=== PATIENT | male | born 1945 | race Hispanic/Latino ===

== ENCOUNTER → 2019-09-19 | Outpatient (CLI) | payer OTHER | END | disposition home or self-care (01) | LOC: SHCH 15:09 | PROVIDERS: ATTEND Internal Medicine Cardiovascular Disease | DX: I35.8 Other nonrheumatic aortic valve disorders (principal); I35.0 Nonrheumatic aortic (valve) stenosis | CPT/HCPCS: 93306; 93356 ==

== ENCOUNTER → 2019-09-21 | Outpatient (CLI) | payer OTHER | END | disposition home or self-care (01) | LOC: SHCH 10:04 | PROVIDERS: ATTEND Internal Medicine Cardiovascular Disease | DX: I73.9 Peripheral vascular disease, unspecified (principal); I87.2 Venous insufficiency (chronic) (peripheral) | CPT/HCPCS: 93925; 93970 ==

== ENCOUNTER → 2020-03-27 | Outpatient (CLI) | payer OTHER | END | disposition home or self-care (01) | LOC: SHCH 09:39 | PROVIDERS: ATTEND Internal Medicine Cardiovascular Disease | DX: I35.0 Nonrheumatic aortic (valve) stenosis (principal) | CPT/HCPCS: 93306; 93356 ==

== ENCOUNTER → 2021-02-27 | Outpatient (CLI) | payer OTHER | END | disposition home or self-care (01) | LOC: SHCH 12:54 | PROVIDERS: ATTEND Internal Medicine Cardiovascular Disease | DX: I73.89 Other specified peripheral vascular diseases (principal); I87.2 Venous insufficiency (chronic) (peripheral); I70.293 Other atherosclerosis of native arteries of extremities, bilateral legs | CPT/HCPCS: 93925; 93970 ==

== ENCOUNTER → 2022-08-17 | Outpatient (CLI) | payer OTHER | END | disposition home or self-care (01) | LOC: SHCH 12:37 | PROVIDERS: ATTEND Internal Medicine Cardiovascular Disease | DX: I35.1 Nonrheumatic aortic (valve) insufficiency (principal); I11.9 Hypertensive heart disease without heart failure; I87.2 Venous insufficiency (chronic) (peripheral); I70.203 Unspecified atherosclerosis of native arteries of extremities, bilateral legs; E11.51 Type 2 diabetes mellitus with diabetic peripheral angiopathy without gangrene; E78.5 Hyperlipidemia, unspecified; Z95.3 Presence of xenogenic heart valve; Z95.1 Presence of aortocoronary bypass graft | CPT/HCPCS: 93306; 93925; 93970 ==

== ENCOUNTER → 2024-01-03 | Outpatient (CLI) | payer OTHER | END | disposition home or self-care (01) | LOC: SHCH 08:56 | PROVIDERS: ATTEND Internal Medicine Cardiovascular Disease | DX: I73.9 Peripheral vascular disease, unspecified (principal); I87.2 Venous insufficiency (chronic) (peripheral) | CPT/HCPCS: 93925; 93970 ==

== ENCOUNTER → 2024-08-13 | Outpatient (CLI) | payer OTHER ==
[2024-08-13 16:29] LABS: BASOPHILS # (AUTO) 0.03 K/uL (0.00-0.20); BASOPHILS % (AUTO) 0.3 % (0.0-5.0); EOSINOPHILS # (AUTO) 0.24 K/uL (0.00-0.70); EOSINOPHILS % (AUTO) 2.4 % (0.0-8.0); HEMATOCRIT 36.6 % (42-54); IMMATURE GRANULOCYTE ABSOLUTE 0.03 K/uL (0-1); LYMPHOCYTES # (AUTO) 1.4 K/uL (1.0-4.8); LYMPHOCYTES % (AUTO) 13.7 % (21.0-51.0); MEAN CORPUSCULAR HEMOGLOBIN 30.4 pg (27.0-33.0); MEAN CORPUSCULAR HGB CONC 32.5 g/dL (32.0-36.0); MEAN CORPUSCULAR VOLUME 93.4 fL (79-99); MONOCYTES # (AUTO) 0.9 K/uL (0.1-1.0); MONOCYTES % (AUTO) 9.1 % (3.0-13.0); NEUTROPHILS # (AUTO) 7.5 K/uL (1.8-7.7); NEUTROPHILS % (AUTO) 74.2 % (40.0-77.0); PLATELET COUNT (AUTO) 210 K/uL (130-400); RED BLOOD CELL COUNT(AUTO) 3.92 MIL/uL (4.50-6.20); RED CELL DISTRIBUTION WIDTH 14.6 % (11.0-15.5); WHITE BLOOD COUNT (AUTO) 10.1 K/uL (4.8-10.8)
[2024-08-13 16:50] LABS: ALBUMIN 3.7 g/dL (3.5-5.0); BILIRUBIN,TOTAL 0.6 mg/dL (0.2-1.0); CREATININE 1.4 mg/dL (0.5-1.3); POTASSIUM 4.8 mmol/L (3.5-5.1)
== END | disposition home or self-care (01) ==
LOC: LAB 15:31
PROVIDERS: ATTEND Internal Medicine Cardiovascular Disease
DX: R06.02 Shortness of breath (principal)
CPT/HCPCS: 36415; 80053; 83880; 85025

== ENCOUNTER → 2024-08-14 | Outpatient (CLI) | payer OTHER ==
--- NOTE | 2024-08-16 10:19 | HMCSR ---
APPROVED REPORT EXAM: Two-dimensional and M-mode echocardiogram with Doppler and color Doppler. INDICATION ICD: R06.02 Shortness of breath 2D Dimensions RVDd4.4 cmLVEF(%)43.8 (>50%)LVED Vol(simp.)233.0 mL IVSd1.3 (0.7-1.1cm)FS(%)22 %LVES Vol(simp.)135.0 mL LVDd5.0 (3.8-5.6cm)Ao Root(2D)3.0 (2.0-3.7cm)LVEF(%, simp.)42 % PWd1.4 (0.7-1.1cm)LVOT diam2.0 (1.8-2.4cm)LA ESV INDEX (BP)56.52 mL/m2 LVDs3.9 (2.5-4.0cm)IVC diam1.8 cm Aortic Valve AoV Vmax2.7 m/Haresh Peak GR30.2 mmHgLVOT Vmax1.2 m/s AoV VTI0.7 mAo Mean GR15.8 mmHgLVOT VTI0.31 m YECENIA (VMAX)1.4 cm2Al P1/2T180 msAVA (VTI) 1.4 cm2 Mitral Valve MV E Hqhv039.1 cm/sDECEL Zczi047 msMV Peak GR17 mmHg MR Max PG109 mmHgP 1/2 T63 msMV Mean GR6 mmHg MVA (PHT)3.5 cm2MVA (VTI)2.0 cm2 TDI E/E' Hzdbmj25.4E/E' Ocqxhqr10.3 Pulmonary Valve PV Vmax0.8 m/sPV VTI0.19 mPV Mean GR2 mmHg PV Peak GR2.7 mmHg Tricuspid Valve TR Vmax3.2 m/sRAP (EST) 8 awWjHKTU85.3 mmHg TR Peak GR41.3 mmHg Left Ventricle The left ventricle structure and function is normal. Mild global hypokinesis Apical hypokinesis mild- moderate There is mild to moderate concentric left ventricular hypertrophy. LVEF is 40-45%. Indetermi brenda diastolic dysfunction. Right Ventricle The right ventricle is mildly to moderately dilated. Right ventricular systolic function is mildly to moderately reduced. Atria The left atrium is severely dilated. The right atrium is moderately dilated. Aortic Valve Aortic valve is trileaflet. The aortic valve is calcified and displays decreased opening. Moderate ao rtic regurgitation. AV Dimensionless Index is 0.44 Calculated aortic valve area is 1.4 cm2 with maxim um pressure gradient of 30.2 mmHg and mean pressure gradient of 15.8 mmHg. Mitral Valve Mitral valve leaflets are calcified. Mitral annular calcification is moderate. Mitral regurgitation i s moderate. Calculated mitral valve area is 2.0 cm2 with maximum pressure gradient of 16.9 mmHg and m sebastián pressure gradient of 5.6 mmHg. Tricuspid Valve The tricuspid valve leaflets appear normal. There is mild tricuspid regurgitation. Right ventricular systolic pressure is estimated at 40-50 mmHg. Pulmonic Valve The pulmonic valve leaflets are thin and pliable; valve motion is normal. There is trace pulmonic dana vular regurgitation. Great Vessels The aortic root is normal in size. IVC is dilated and collapses >50% with inspiration. Pericardium No pericardial effusion. Conclusion There is mild to moderate concentric left ventricular hypertrophy. LVEF is 40-45%. Mild global hypokinesis Apical hypokinesis mild-moderate Moderate aortic regurgitation. Calculated aortic valve area is 1.4 cm2 with maximum pressure gradient of 30.2 mmHg and mean pressure gradient of 15.8 mmHg. Mitral valve leaflets are calcified. Mitral annular calcification is moderate. Mitral regurgitation is moderate. Calculated mitral valve area is 2.0 cm2 with maximum pressure gradient of 16.9 mmHg and mean pressure gradient of 5.6 mmHg. No pericardial effusion.
== END | disposition home or self-care (01) ==
LOC: SHCH 15:15
PROVIDERS: ATTEND Internal Medicine Cardiovascular Disease
DX: I08.3 Combined rheumatic disorders of mitral, aortic and tricuspid valves (principal); R06.02 Shortness of breath
CPT/HCPCS: 93306